=== PATIENT | female | born 1950 | race African-American/Black ===

== ENCOUNTER → 2021-06-11 | Day surgery (SDC) | payer MEDICARE ==
[~2021-06-11] VITALS: Ht 162.6 cm; Wt 56.6 kg
[~2021-06-11] MED LIST: AMLO-186 PO; ATOR80TA72 PO; GLIM4TAB8 PO; IV RINGERS,LACTATED 1000ML 1,000 ML IV SCH; LINA5TAB PO; LOSA-73 PO; PIOG30TA41 PO; PROPOFOL 10 MG/ML (20ML) VIAL. IV ONE; SEMA14TA2 PO
[2021-06-11 08:50] VITALS: BP 131/76
--- NOTE | 2021-06-11 09:25 | PDOC2 ---
CONSULT Date of Consult Date of Consult DATE: 06/11/21 TIME: 09:22 Reason for Consult Reason for Consult: Colorectal cancer screening History of Present Illness Reason for Visit: 70 year old Female is seen with above. She has daily bowel movements without diarrhea or constipation. Weight and appetite are stable. No melena and/or hematochezia is noted. No family history of colon cancer is present. She otherwise is without additional complaints. Past Medical History Cardiovascular: HTN Endocrine: Diabetes Past Surgical History Past Surgical History: No pertinent history Family History Family History: Diabetes Social History No ALCOHOL: none Current Medications Current Medications Current Medications Ringer's Solution 1,000 ml @ 100 mls/hr Q10H IV Last administered on 06/11/21at 08:54; Start 06/11/21 at 08:45; Stop 06/12/21 at 08:44 Active Scripts Active Reported Losartan Potassium 50 Mg Tablet 50 Mg PO DAILY Rybelsus (Semaglutide) 14 Mg Tablet 14 Mg PO DAILY Glimepiride 4 Mg Tablet 4 Mg PO DAILY Amlodipine Besylate 5 Mg Tablet 5 Mg PO DAILY Atorvastatin Calcium 80 Mg Tablet 40 Mg PO QHS Tradjenta (Linagliptin) 5 Mg Tablet 5 Mg PO DAILY Actos (Pioglitazone Hcl) 30 Mg Tablet 30 Mg PO DAILY Allergies Allergies: Coded Allergies: No Known Drug Allergies (Unverified , 06/11/21) ROS Musculoskeletal: Yes Joint Pain Physical Exam General: Alert, Oriented X3 Lungs: Clear to auscultation Heart: Regular rate Abdomen: Normal bowel sounds, Soft, No tenderness Vitals VITALS Vital Signs Date Time Temp Pulse Resp B/P (MAP) Pulse Ox O2 Delivery O2 Flow Rate FiO2 06/11/21 08:50 97.7 85 18 96 97.7 Assessment/Plan Assessment/Plan Colorectal cancer screening- is recommended at this time. R/B have been discussed with patient who is willing to proceed. KENNEY REINA MD June 11, 2021 09:25
[2021-06-11 10:08] VITALS: BP 113/72
== END | disposition home or self-care (01) ==
LOC: ENDOS 08:15
PROVIDERS: ATTEND Internal Medicine Gastroenterology
DX: Z12.11 Encounter for screening for malignant neoplasm of colon (principal); K64.0 First degree hemorrhoids; K63.89 Other specified diseases of intestine; I10 Essential (primary) hypertension; E11.9 Type 2 diabetes mellitus without complications; E78.00 Pure hypercholesterolemia, unspecified; M19.90 Unspecified osteoarthritis, unspecified site; Z87.891 Personal history of nicotine dependence; Z79.899 Other long term (current) drug therapy; Z98.890 Other specified postprocedural states
CPT/HCPCS: G0121; J2704; 45378